=== PATIENT | male | born 1930 | race Caucasian/White ===

== ENCOUNTER 2018-10-15 19:48 | Emergency (ER) | payer MEDICARE, OTHER ==
[~2018-10-15] VITALS: Ht 175.3 cm; Wt 88.2 kg
--- NOTE | 2018-10-15 20:44 | PHYS DOC ---
Past History Past Medical History: Cancer, Hypertension Additional Past Medical Histor: prostate cancer Past Surgical History: Other Additional Past Surgical Histo: prostate cancer surgery, hernia repair Smoking: Non-smoker Alcohol Use: None Drug Use: None Adult General Chief Complaint Chief Complaint: ALTERED MENTAL STATUS HPI HPI Patient is a 88-year-old male presents with weakness and confusion. Patient has been feeling generally weak for approximately the past 2 weeks. He presents with family after having a visit with his primary care physician at earlier today. Since that time patient developed a headache. He had some difficulty seeing. Family and driver courier report symptoms started at around 1730 today with left- sided facial droop and difficulty it seems seeing out of the left side of his eyes, looking not directly at the person he is speaking to.[] Review of Systems Review of Systems Constitutional: Denies fever or chills [] Eyes: Denies change in visual acuity, redness, or eye pain [] HENT: Denies nasal congestion or sore throat [] Respiratory: Denies cough or shortness of breath [] Cardiovascular: No chest pain or palpitations[] GI: Denies abdominal pain, nausea, vomiting, bloody stools or diarrhea [] : Denies dysuria or hematuria [] Musculoskeletal: Denies back pain or joint pain [] Integument: Denies rash or skin lesions [] Neurologic: See history of present illness[] Endocrine: Denies polyuria or polydipsia [] All other systems were reviewed and found to be within normal limits, except as documented in this note. Allergies Allergies Allergies Coded Allergies Type Severity Reaction Last Updated Verified No Known Drug Allergies 10/15/18 No Physical Exam Physical Exam Constitutional: Well developed, well nourished, no acute distress, non-toxic appearance. [] HENT: Normocephalic, atraumatic, bilateral external ears normal, oropharynx moist, no oral exudates, nose normal. [] Eyes: PERRLA, EOMI, conjunctiva normal, no discharge. [] Neck: Normal range of motion, no tenderness, supple, no stridor. [] Cardiovascular:Heart rate regular rhythm, no murmur [] Lungs & Thorax: Bilateral breath sounds clear to auscultation [] Abdomen: Bowel sounds normal, soft, no tenderness, no masses, no pulsatile masses. [] Skin: Warm, dry, no erythema, no rash. Skin tear left distal forearm, dorsal aspect, not a suturable wound[] Back: No tenderness, no CVA tenderness. [] Extremities: No tenderness, no cyanosis, no clubbing, ROM intact, no edema. [] Neurologic: Alert and oriented X 3, see NIHSS[] Psychologic: Affect normal, judgement normal, mood normal. [] Current Patient Data Vital Signs Vital Signs Date Time Temp Pulse Resp B/P (MAP) Pulse Ox O2 Delivery O2 Flow Rate FiO2 10/15/18 20:00 97.9 81 22 167/88 (114) 96 Room Air EKG EKG EKG shows a sinus rhythm at 79 bpm, left axis, QTC of 395 ms, first-degree AV block, no ST elevations. Interpreted by me at 2006[] Radiology/Procedures Radiology/Procedures PROCEDURE: CT ANGIOGRAPHY HEAD AND NECK Exam: CTA head and neck with contrast INDICATION: Left-sided facial weakness, left visual loss TECHNIQUE: Sequential axial images through the head and neck obtained following the administration of 70 mL of Isovue 370 IV contrast. IV contrast. Sagittal and coronal reformatted images were reconstructed from the axial data and reviewed. Comparisons: CT head without contrast same day FINDINGS: CTA of neck: Atherosclerotic plaque visualized portions of the thoracic aorta. 2 vessel aortic arch with common origin of the brachycephalic and left common carotid arteries. Right common carotid artery is patent without evidence of stenosis, occlusion or aneurysm. Mild calcified carotid plaque at the origin of the right internal carotid artery without significant stenosis. Otherwise, the cervical segment of the right internal carotid artery is patent without evidence of stenosis, occlusion or aneurysm. Mild plaque at the mid left common carotid artery without significant stenosis. Mild calcified carotid plaque the origin of the left internal carotid artery without significant stenosis. Otherwise, the cervical segment of the left internal carotid artery is patent without evidence of stenosis, occlusion or aneurysm. Mild calcified atherosclerotic plaque at the intradural segments of the vertebral arteries bilaterally without significant stenosis. Visualized cervical soft tissues are unremarkable. CTA HEAD: Mild calcified atherosclerotic plaque of the cavernous segment of the right internal carotid artery without significant stenosis. Right MCA is patent. Right SAMMY is patent. Mild calcified carotid plaque in the cavernous segment of the left internal carotid artery without significant stenosis. Left MCA is patent. Left SAMMY is patent. Basilar artery is patent without evidence of stenosis, occlusion or aneurysm. Major branch vessels arising off the basilar artery are patent. Right AUTOGLAZIER is patent. Left AUTOGLAZIER is patent. No large vascular territory infarction or hemorrhage. Ventricular system is stable. IMPRESSION: 1. No large vessel occlusion identified. 2. Mild atherosclerotic plaque at the origin of the internal carotid arteries bilaterally without significant stenosis. 3. Mild calcified atherosclerotic plaque at the intradural segments of the vertebral arteries bilaterally without significant stenosis. 4. Mild calcified left carotid plaque of the cavernous segments of the internal carotid artery bilaterally without significant stenosis. PROCEDURE: CT CODE STROKE HEAD WO Exam: CT head INDICATION: Left facial droop TECHNIQUE: Sequential axial images through the head were obtained without the administration of IV contrast. Comparisons: None FINDINGS: No focal parenchymal lesion or hemorrhage is identified. There is no midline shift or sulcal effacement. Patchy hypodensities within the periventricular white matter. Attenuation of the sulci and ventricular system, likely related to atrophy. The ventricular system is within normal limits without compression hydrocephalus. The basal cisterns are well maintained. The visualized portions of the paranasal sinuses and mastoid air cells are well-pneumatized. No acute fractures. IMPRESSION: No hemorrhage. Patchy hypodensities within the periventricular white matter likely representing chronic ischemic change. Consider further evaluation with MRI if clinically indicated. PROCEDURE: CHEST AP ONLY Exam: Chest one view INDICATION: Weakness TECHNIQUE: Frontal view of the chest Comparisons: None FINDINGS: The cardiomediastinal silhouette and pulmonary vessels are within normal limits. The lung and pleural spaces are clear. IMPRESSION: No acute cardiopulmonary process.[] Course & Med Decision Making Course & Med Decision Making Pertinent Labs and Imaging studies reviewed. (See chart for details) ED course: Patient arrived, was placed in bed, he was noted to have difficulty getting out of the car and sustained a skin tear during that time, and tolerated exam well. History was difficult to obtain because family that arrived initially with patient hadn't seen him since Father's Day. Approximately an hour into his care in the emergency department a roommate came in and said his symptoms started at around 5:30 PM today. He was started as a stroke protocol at that time. His NIH stroke scale was determined to be 4 due to the facial issues and the left sided vision loss and difficulty with speaking. Consultation was made with [facility] neurology. Dr. Dangelo recommended TPA if it could be administered within 4-1/2 hours. Unfortunately this consultation was made with approximately 10 minutes to go. During the discussion with Dr. Dangelo the results of the CT angiogram returned that showed no large vessel occlusion. Initially planned on transferring the patient to [facility] and our hospitalist had graciously accepted. Due to patient being treated normally at as well as family working there they requested he be transferred. Dr. Dangelo graciously accepted the patient for transfer. He was given aspirin in the emergency department and was able to pass his dysphagia screen. Medical decision making: Patient with possible stroke symptoms with an NIH stroke scale of 4, TPA held because of delays and difficulty in obtaining the history. By the time appropriate results and history were obtained patient "fell out of the window" for thrombolytics. His tetanus status was updated [] Dragon Disclaimer Dragon Disclaimer This electronic medical record was generated, in whole or in part, using a voice recognition dictation system. Departure Departure: Impression: Primary Impression: Stroke Disposition: 05 TRANSFER OTHER Condition: STABLE Referrals: FRANCHESCA CURRY (PCP) NIHSS - ED NIH Stroke Scale: NIH Stroke Scale Response (Comments) Value Level of Consciousness: 0 Alert/Responsive 0 LOC Questions: 0 Answers both correctly 0 LOC Commands: 0 Performs both tasks 0 Best Gaze: 0 Normal 0 Visual: 1 Partial hemianopia 1 Facial Palsy: 1 Minor paralysis (left-sided) 1 Motor - Left Arm 0 No drift 0 Motor - Right Arm 0 No drift 0 Motor - Left Leg 1 Drift but can hold 1 Motor: Right Leg 0 No drift 0 Limb Ataxia: 0 Absent 0 Sensory: 0 No loss 0 Best Language: 1 Mild to mod aphasia 1 Dysathria: 0 Normal 0 Extinction and Inattention: 0 Normal 0 Total 4 Problem Qualifiers Primary Impression: Stroke CVA mechanism: unspecified Qualified Codes: I63.9 - Cerebral infarction, unspecified MINDA CISNEROS DO Oct 15, 2018 20:44
[2018-10-15 20:54] LABS: BASO # 0.1 x10^3/uL (0.0-0.2); BASO % 1 % (0-3); EOS # 0.1 x10^3/uL (0.0-0.7); EOS % 1 % (0-3); HEMATOCRIT 39.9 % (39.0-53.0); LYMPH # 1.4 x10^3/uL (1.0-4.8); LYMPH % 17 % (24-48); MEAN CORPUSCULAR HEMOGLOBIN 27 pg (25-35); MEAN CORPUSCULAR HGB CONC 33 g/dL (31-37); MEAN CORPUSCULAR VOLUME 84 fL (79-100); MONO # 0.7 x10^3/uL (0.0-1.1); MONO % 8 % (0-9); NEUT # 6.2 x10^3uL (1.8-7.7); NEUT % 74 % (31-73); PLATELET COUNT 348 x10^3/uL (140-400); RED BLOOD COUNT 4.76 x10^6/uL (4.30-5.70); WHITE BLOOD COUNT 8.4 x10^3/uL (4.0-11.0)
--- NOTE | 2018-10-15 20:54 | RAD ---
Exam: CT head INDICATION: Left facial droop TECHNIQUE: Sequential axial images through the head were obtained without the administration of IV contrast. Comparisons: None FINDINGS: No focal parenchymal lesion or hemorrhage is identified. There is no midline shift or sulcal effacement. Patchy hypodensities within the periventricular white matter. Attenuation of the sulci and ventricular system, likely related to atrophy. The ventricular system is within normal limits without compression hydrocephalus. The basal cisterns are well maintained. The visualized portions of the paranasal sinuses and mastoid air cells are well-pneumatized. No acute fractures. IMPRESSION: No hemorrhage. Patchy hypodensities within the periventricular white matter likely representing chronic ischemic change. Consider further evaluation with MRI if clinically indicated. Exposure: One or more of the following in the visualized dose reduction techniques were utilized for this examination: 1. Automated exposure control 2. Adjustment of the MA and/or KV according to patient size Use of iterative of reconstructive technique Electronically signed by: Gabrielle Rich MD (10/15/2018 8:51 PM) [facility]
[2018-10-15] MEDS ORDERED: IOHEXOL 350 MG/ML 100 ML VIAL. IV ONE (21:00)
[2018-10-15 21:09] LABS: ALBUMIN 3.5 g/dL (3.4-5.0); ALBUMIN/GLOBULIN RATIO 1.1 (1.0-1.7); CALCIUM 9.3 mg/dL (8.5-10.1); CREATININE 1.1 mg/dL (0.7-1.3); GFR 63.5; POTASSIUM 4.1 mmol/L (3.5-5.1); TOTAL BILIRUBIN 0.6 mg/dL (0.2-1.0); TOTAL PROTEIN 6.8 g/dL (6.4-8.2)
--- NOTE | 2018-10-15 21:35 | RAD ---
Exam: Chest one view INDICATION: Weakness TECHNIQUE: Frontal view of the chest Comparisons: None FINDINGS: The cardiomediastinal silhouette and pulmonary vessels are within normal limits. The lung and pleural spaces are clear. IMPRESSION: No acute cardiopulmonary process. Electronically signed by: Gabrielle Rich MD (10/15/2018 9:33 PM) [facility]
--- NOTE | 2018-10-15 21:53 | RAD ---
Exam: CTA head and neck with contrast INDICATION: Left-sided facial weakness, left visual loss TECHNIQUE: Sequential axial images through the head and neck obtained following the administration of 70 mL of Isovue 370 IV contrast. IV contrast. Sagittal and coronal reformatted images were reconstructed from the axial data and reviewed. Comparisons: CT head without contrast same day FINDINGS: CTA of neck: Atherosclerotic plaque visualized portions of the thoracic aorta. 2 vessel aortic arch with common origin of the brachycephalic and left common carotid arteries. Right common carotid artery is patent without evidence of stenosis, occlusion or aneurysm. Mild calcified carotid plaque at the origin of the right internal carotid artery without significant stenosis. Otherwise, the cervical segment of the right internal carotid artery is patent without evidence of stenosis, occlusion or aneurysm. Mild plaque at the mid left common carotid artery without significant stenosis. Mild calcified carotid plaque the origin of the left internal carotid artery without significant stenosis. Otherwise, the cervical segment of the left internal carotid artery is patent without evidence of stenosis, occlusion or aneurysm. Mild calcified atherosclerotic plaque at the intradural segments of the vertebral arteries bilaterally without significant stenosis. Visualized cervical soft tissues are unremarkable. CTA HEAD: Mild calcified atherosclerotic plaque of the cavernous segment of the right internal carotid artery without significant stenosis. Right MCA is patent. Right SAMMY is patent. Mild calcified carotid plaque in the cavernous segment of the left internal carotid artery without significant stenosis. Left MCA is patent. Left SAMMY is patent. Basilar artery is patent without evidence of stenosis, occlusion or aneurysm. Major branch vessels arising off the basilar artery are patent. Right FAMILY [employer] CONSUMER SCIENCE PROFESSOR is patent. Left FAMILY [employer] CONSUMER SCIENCE PROFESSOR is patent. No large vascular territory infarction or hemorrhage. Ventricular system is stable. IMPRESSION: 1. No large vessel occlusion identified. 2. Mild atherosclerotic plaque at the origin of the internal carotid arteries bilaterally without significant stenosis. 3. Mild calcified atherosclerotic plaque at the intradural segments of the vertebral arteries bilaterally without significant stenosis. 4. Mild calcified left carotid plaque of the cavernous segments of the internal carotid artery bilaterally without significant stenosis. Exposure: One or more of the following in the visualized dose reduction techniques were utilized for this examination: 1. Automated exposure control 2. Adjustment of the MA and/or KV according to patient size 3. Use of iterative of reconstructive technique Electronically signed by: Gabrielle Rich MD (10/15/2018 9:51 PM) [facility]
[2018-10-15] MEDS ORDERED: ASPIRIN 81 MG TAB.CHEW PO ONE (22:15)
[2018-10-15] MEDS ORDERED: DIPHTH,PERTUSS(ACELL),TET TOX 0.5 ML DISP.SYRIN. VAX IM ONE (22:30)
[2018-10-15 22:50] VITALS: BP 149/81
--- NOTE | 2018-10-16 08:29 | EKG ---
[address] [address] Test Date: 2018-10-15 Test Time: 20:05:16 Pat Name: HEBER SOLANO Department: Room: Gender: M Motion Picture Cameraman: TEVIN : [id number] Requested By: MINDA CISNEROS Order Number: [id number] Reading MD: Measurements Intervals [place] Rate: 79 P: 42 WY: 250 QRS: -2 QRSD: 60 T: 41 QT: 344 QTc: 395 Interpretive Statements SINUS RHYTHM PROLONGED WY INTERVAL LEFT ATRIAL ABNORMALITY LEFTWARD AXIS ABNORMAL ECG RI6.01 No previous ECG available for comparison
== END 2018-10-15 22:50 | disposition short-term general hospital (02) ==
LOC: ER 19:48
DX: I63.9 Cerebral infarction, unspecified (principal); I10 Essential (primary) hypertension
CPT/HCPCS: 36415; 70450; 70496; 70498; 71045; 80053; 83605; 84484; 85025; 85610; 85730; 93005; 99285; Q9967